=== PATIENT | male | born 1950 | race Caucasian/White ===

== ENCOUNTER 2016-09-23 10:28 | Emergency (ER) | payer OTHER ==
[2016-09-23 10:28] VITALS: BP 0/0; PULSE 0; RESP 0; O2SAT 0
--- NOTE | 2016-09-23 11:03 | PD ---
HPI Chief Complaint: cardiac arrest Time Seen by Provider: 10:47 Travel History International Travel<30 days: No Contact w/Intl Traveler<30days: No Traveled to known affect area: No History of Present Illness HPI This patient is brought in in cardiac arrest. He was seen by his at 6:30 AM. He was smoking just outside the house at that time. She went to work. Sometime between 9:30 and 10 AM neighbor found him lying on the ground. Paramedics responded. He was found in asystole and ACLS protocol instituted. A Combitube was placed as well as an intraosseous line. He was given 3 rounds of epinephrine. He remained in asystole the entire time. He arrived here at 10 :25 AM still in asystole. Obviously he can provide no history or review of systems. His history is completely unknown. He does have large abrasion to the right forehead. [facility] Social History Alcohol Use: No Tobacco Use: Yes Substance Use: No Review of Systems ROS Limitations: Clinical Condition, Intubated, Unresponsive Physical Exam Narrative GENERAL: Well-nourished, well-developed patient unresponsive in cardiac arrest . SKIN: Cold and dry. Difficult to tell exactly but may be a bit jaundiced HEAD: Large right forehead abrasion. Normocephalic. EYES: Pupils equal and round but fixed and dilated. No corneal reflex. No injection or drainage. ENT: No nasal bleeding or discharge. Mucous membranes pink and dry. Combitube in place NECK: Trachea midline. No JVD. CARDIOVASCULAR: No cardiac activity. He is pulseless. RESPIRATORY: No spontaneous respiratory activity. Has symmetric breath sounds with respiratory therapist bagging. GASTROINTESTINAL: Abdomen soft, non-tender, nondistended. Hepatic and splenic margins not palpable. MUSCULOSKELETAL: No obvious deformities. No clubbing. No cyanosis. No edema. NEUROLOGICAL: GCS 3. No coronary reflex. No response to pain stimuli. Pupils are fixed and dilated. imPossible to further test motor strength or sensation. PSYCHIATRIC: He is unresponsive. Impossible to test mood or affect or insight or judgment. [facility] Medical Decision Making Medical Screen Exam Complete: Yes Emergency Medical Condition: Yes Medical Record Reviewed: Yes Differential Diagnosis Cardiac arrest, intracranial hemorrhage, aortic dissection Narrative Course I have reviewed the patient's electronic medical record. Patient has never been to the emergency room before He was brought into the emergency room in cardiac arrest We continued ACLS protocol He was attached to our monitor and was in asystole He had already received 3 rounds of epinephrine We continued CPR for approximately 10 minutes Breath sounds were good and symmetric with bagging and I felt the airway was in place I did a bedside ultrasound which showed that there is not even the slightest movement of the heart. Not even a quiver. At this point he is been in asystole for a minimum of 35 minutes but likely much longer. I have called the code at 10:35 AM I spoke with daughter and son-in-law. He has no primary physician. His is on the way in and I will speak with her when she arrives Diagnosis Primary Impression: Cardiac arrest Disposition: 20 SENT TO MED EXAMINR Condition: Yousuf Dale MD Sep 23, 2016 11:03
== END 2016-09-23 12:56 | disposition expired ==
LOC: PHED 10:28
DX: I46.9 Cardiac arrest, cause unspecified (principal)
CPT/HCPCS: 92950